=== PATIENT | female | born 1965 | race Two or more races ===

== ENCOUNTER 2025-09-07 09:41 | Emergency (ER) | payer OTHER ==
[~2025-09-07] VITALS: Ht 154.9 cm; Wt 69.0 kg
--- NOTE | 2025-09-07 10:41 | ED.PDOC ---
GI ASSESSMENT HPI Comments This is a 59 year old female presenting to the ED with chief complaint of diarrhea. Patient reports that she has been experiencing diarrhea with associated upper abdominal pain/cramping for the past 2 weeks. Patient relays that her diarrhea has worsened over time and any amount of food makes her go to the bathroom. Reports initially having dark stool, however, now having loose, watery stool. No blood noted within the stool. Patient states she was prescribed Augmentin around the time of her diarrhea onset, was being treated for a ride at this time. Just finished the antibiotics about 3 days ago. Patient notes urgent care prescribed Lomotil and advised her to come to the ED if no relief was noted. Patient denies any N/V, dizziness, fever, chills, or chest pain. Chief Complaint: Diarrhea Time Seen by MD: 10:39 Reviewed Notes: Nurses Notes, Medications, Allergies Allergies: Coded Allergies: NO KNOWN ALLERGIES (Unverified , 09/07/25) Home Meds Active Scripts Potassium Bicarbonate (Effer-K) 25 Meq Tab, 50 MEQ PO DAILY for 5 Days, #10 TAB Prov:MAGED CAMPBELL MD 09/07/25 Information Source: Patient Mode of Arrival: Ambulatory Timing: Days Duration: Since onset Prehospital treatment: None Quality: Aching Vomitus: None Stool: Watery Severity: Moderate Recent: None Recent Hx of: None Pain Location: Epigastric Modifying Factors: Nothing Associated sign and symptoms: Diarrhea, Abdominal Pain Past Medical History PAST MEDICAL HISTORY: Denies Surgical History: Denies all surgeries DIE CLEANER History: No Pertinent DIE CLEANER History Family History Family History: Reviewed,noncontributory to illness Social History Smoker: Non-Smoker Alcohol: Denies ETOH Use Drugs: Denies Drug Use Lives In: Home Constitutional: denies: chills, diaphoresis, fatigue, fever, malaise, sweats, weakness, others EENTM: denies: blurred vision, double vision, ear bleeding, ear discharge, ear drainage, ear pain, ear ringing, eye pain, eye redness, hearing loss, mouth pain, mouth swelling, nasal discharge, nose bleeding, nose congestion, nose pain, photophobia, tearing, throat pain, throat swelling, voice changes, others Respiratory: denies: cough, hemoptysis, orthopnea, SOB at rest, shortness of breath, SOB with excertion, stridor, wheezing, others Cardiovascular: denies: chest pain, dizzy spells, diaphoresis, Dyspnea on exertion, edema, irregular heart beat, left arm pain, lightheadedness, palpitations, PND, syncope, others Gastrointestinal: reports: abdominal pain, diarrhea; denies: abdomen distended, blood streaked bowels, constipated, dysphagia, difficulty swallowing, hematemesis, melena, nausea, poor appetite, poor fluid intake, rectal bleeding, rectal pain, vomiting, others Genitourinary: denies: abnormal vagina bleeding, burning, dyspareunia, dysuria, flank pain, frequency, hematuria, incontinence, pain, , vagina discharge, urgency, others Neurological: denies: dizziness, fainting, headache, left sided numbness, left sided weakness, numbness, paresthesia, pre-existing deficit, right sided numbness, right sided weakness, seizure, speech problems, tingling, tremors, weakness, others Musculoskeletal: denies: back pain, gout, joint pain, joint swelling, muscle pain, muscle stiffness, neck pain, others Integumetry: denies: bruises, change in color, change in hair/nails, dryness, laceration, lesions, lumps, rash, wounds, others Allergic/Immunocompromised: denies: Difficulty Healing, Frequent Infections, Hives, Itching, others Hematologic/Lymphatic: denies: anemia, blood clots, easy bleeding, easy bruising, swollen glands, others Endocrine: denies: excessive hunger, excessive sweating, excessive thirst, excessive urination, flushing, intolerance to cold, intolerance to heat, unexplained weight gain, unexplained weight loss, others Psychiatric: denies: anxiety, bipolar disorder, depression, hopeless, panic disorder, schizophrenia, sleepless, suicidal, others All Other Systems: Reviewed and Negative Physical Exam General Appearance: No Apparent Distress, Normal HEENT: Normal ENT Inspection, Pharynx Normal, TMs Normal Neck: Full Range of Motion, Non-Tender, Normal, Normal Inspection Respiratory: Chest Non-Tender, Lungs Clear, No Accessory Muscle Use, No Respiratory Distress, Normal Breath Sounds Cardiovascular: No Edema, No JVD, No Murmur, No Gallop, Normal Peripheral Pulses, Regular Rate/Rhythm Breast Exam: Deferred Gastrointestinal: No Organomegaly, Non Tender, No Pulsatile Mass, Normal Bowel Sounds, Soft Genitalia: Deferred Pelvic: Deferred Rectal: Deferred Extremities: No calf tenderness, Normal capillary refill, Normal inspection, Normal range of motion, Non-tender, No pedal edema Musculoskeletal : Apperance: Normal Neurologic: Alert, fpga design engineer II-XII nml as Tested, No Motor Deficits, Normal Affect, Normal Mood, No Sensory Deficits Cerebellar Function: Normal Reflexes: Normal Skin: Dry, Normal Color, Warm Lymphatic: No Adenopathy Was a procedure done? Was a procedure done?: No GI differential Dx Differential Diagnosis: Gastritis/PUD, Gastroenteritis, Electrolyte Imbalance, Food Poisoning, Other (Antibiotic) X-Ray, Labs, Meds, VS Vital Signs Date Time Temp Pulse Resp B/P (MAP) Pulse Ox O2 Delivery O2 Flow Rate FiO2 09/07/25 15:04 97.1 72 16 110/60 (77) 96 97.1 09/07/25 12:22 97.8 09/07/25 11:56 97.8 89 16 113/73 (86) 94 97.8 09/07/25 11:56 Room Air* 0 21 09/07/25 09:43 98.1 95 20 131/71 98 98.1 Lab Test 09/07/25 10:32 Range/Units White Blood Count 14.0 H 4.4-10.8 10^3/uL Red Blood Count 4.57 4.0-5.20 10^6/uL Hemoglobin 13.7 12.2-16.2 g/dL Hematocrit 39.8 36.0-46.0 % Mean Corpuscular Volume 87.0 80.0-100.0 fL Mean Corpuscular Hemoglobin 30.0 28.0-32.0 pg Mean Corpuscular Hemoglobin Concent 34.4 32.0-36.0 g/dL Red Cell Distribution Width 13.7 11.8-14.3 % Platelet Count 370 140-450 10^3/uL Mean Platelet Volume 7.8 6.9-10.8 fL Neutrophils (%) (Auto) 37.0-80.0 % Lymphocytes (%) (Auto) 10.0-50.0 % Monocytes (%) (Auto) 0.0-12.0 % Basophils (%) (Auto) 0.0-2.0 % Neutrophils # (Auto) 1.6-8.6 10 ^3/uL Lymphocytes # (Auto) 0.4-5.4 10 ^3/uL Monocytes # (Auto) 0-1.3 10 ^3/uL Differential Total Cells Counted 100.0 100 Neutrophils % (Manual) 44 37.0-80.0 Band Neutrophils % (Manual) 6 Lymphocytes % (Manual) 28 10.0-50.0 Monocytes % (Manual) 20 H 0-12 Eosinophils % (Manual) 2 0-7 Basophils % (Manual) 0 0.0-2.0 Metamyelocytes % (manual) 0 Myelocytes % (Manual) 0 Promyelocytes % (Manual) 0 Blast Cells % (Manual) 0 Reactive Lymphocytes 0 Platelet Estimate Adequate Red Blood Cell Morphology Normal Sodium Level 136 136-145 mmol/L Potassium Level 3.0 L 3.5-5.1 mmol/L Chloride Level 100 98-107 mmol/L Carbon Dioxide Level 28 20-31 mmol/L Anion Gap 8 5-15 Blood Urea Nitrogen 9 9-23 mg/dL Creatinine 0.87 0.550-1.02 mg/dL Glomerular Filtration Rate Calc 77 >90 mL/min BUN/Creatinine Ratio 10.3 10.0-20.0 Serum Glucose 102 74-106 mg/dL Calcium Level 9.6 8.7-10.4 mg/dL Magnesium Level 2.0 1.6-2.6 mg/dL Total Bilirubin 0.7 0.2-1.0 mg/dL Aspartate Amino Transferase (AST) 16 13-40 U/L Alanine Aminotransferase (ALT) 18 7-40 U/L Alkaline Phosphatase 81 46-116 U/L Total Protein 7.3 5.7-8.2 g/dL Albumin 4.4 3.2-4.8 g/dL Lipase 109 H 12-53 U/L HIV (1&2) Antibody Negative Negative Current Medications Medications (Trade) Dose Ordered Sig/Zach Route Start Time Stop Time Status Last Admin Sodium Chloride 1,000 ml @ 1,000 mls/hr Q1H ONCE IV 09/07/25 10:00 09/07/25 10:59 DC 09/07/25 12:23 Famotidine (Pepcid Injection) 20 mg ONCE ONCE IV 09/07/25 10:00 09/07/25 10:01 DC 09/07/25 12:22 Ondansetron HCl (Zofran) 4 mg ONCE ONCE IV 09/07/25 10:00 09/07/25 10:01 DC 09/07/25 12:23 Acetaminophen (Tylenol Tablet Or Capsule) 1,000 mg ONCE ONCE PO 09/07/25 10:00 09/07/25 10:01 DC 09/07/25 12:22 Al Hydrox/Mg Hydrox/Simethicone (Maalox Plus) 30 ml ONCE ONCE PO 09/07/25 10:45 09/07/25 10:46 DC 09/07/25 12:22 Potassium Bicarbonate (Klor-Con/Ef) 50 meq ONCE ONCE PO 09/07/25 13:00 09/07/25 13:01 DC 09/07/25 15:06 Time of 1ST Reevaluation: 11:39 Reevaluation 1ST: Unchanged Time of 2ND Reevaluation: 15:36 Reevaluation 2ND: Improved Patient Education/Counseling: Diagnosis, Treatment Family Education/Counseling: No Family Present SEPSIS Sepsis Screen Date sepsis recognized/suspect: Sep 07, 2025 Time Sepsis recognized/suspect: 943 Recent Procedure: No On Antibiotic Therapy: No Respiratory Rate >20: No Heart Rate >90: Yes Temp<36 C (96.8 F) or >38.3 C: No SBP <90 or MAP <65 mmHG: No New Acute Mental Status Change: No Is the patient on CPAP, BIPAP,: No Physician Orders Acetaminophen Tab Or Cap (Tylenol Tablet (09/07/25 10:00) Vital Signs Date Time Temp Pulse Resp B/P (MAP) Pulse Ox O2 Delivery O2 Flow Rate FiO2 09/07/25 15:04 97.1 72 16 110/60 (77) 96 97.1 09/07/25 12:22 97.8 09/07/25 11:56 97.8 89 16 113/73 (86) 94 97.8 09/07/25 11:56 Room Air* 0 21 09/07/25 09:43 98.1 95 20 131/71 98 98.1 Laboratory Tests Test 09/07/25 10:32 White Blood Count 14.0 10^3/uL (4.4-10.8) H Medications Medications Dose Ordered Sig/Zach Route Start Time Stop Time Status Last Admin Dose Admin Acetaminophen 1,000 mg ONCE ONCE PO 09/07/25 10:00 09/07/25 10:01 DC 09/07/25 12:22 Al Hydrox/Mg Hydrox/Simethicone 30 ml ONCE ONCE PO 09/07/25 10:45 09/07/25 10:46 DC 09/07/25 12:22 Famotidine 20 mg ONCE ONCE IV 09/07/25 10:00 09/07/25 10:01 DC 09/07/25 12:22 Ondansetron HCl 4 mg ONCE ONCE IV 09/07/25 10:00 09/07/25 10:01 DC 09/07/25 12:23 Potassium Bicarbonate 50 meq ONCE ONCE PO 09/07/25 13:00 09/07/25 13:01 DC 09/07/25 15:06 Sodium Chloride 1,000 ml @ 1,000 mls/hr Q1H ONCE IV 09/07/25 10:00 09/07/25 10:59 DC 09/07/25 12:23 Departure 1 Departure Time of Disposition: 15:10 (This is a 59 year old female presenting to the ED with chief complaint of diarrhea. Patient reports that she has been experiencing diarrhea with associated upper abdominal pain/cramping for the past 2 weeks. Patient's symptoms started around the time that she was prescribed antibiotics and it has been taking antibiotics for most of the duration of her symptoms. Suspect likely diarrhea associated symptoms. Although she has had likely antibiotic associated diarrhea she is afebrile here, has no critical leukocytosis, does not seem concerning for C diff colitis. Patient having abdominal cramping, however, has no focal abdominal tenderness, not concerning for acute diverticulitis or other acute intra-abdominal process that would warrant CT imaging at this time. Given continued diarrhea consider likely electrolyte abnormalities. CBC shows no evidence of critical leukocytosis or significant anemia. Metabolic panel shows that the patient has hypokalemia likely related to GI losses. However, has no evidence of acute kidney insuf ficiency. Patient is given 1 L normal saline IV fluid bolus, IV Pepcid, IV Zofran, oral Tylenol, Maalox for symptoms. Was given oral potassium repletion. Feeling improved after interventions. Patient is stable for discharge for further outpatient symptomatic management your x-ray days of potassium repletion. Advised to purchase [id number] probiotics and to continue to take [id number] GI medications as needed continued oral repletion with things such as Pedialyte.) Impression: Primary Impression: Diarrhea Additional Impressions: Hypokalemia Abdominal cramping Disposition: HOME / SELF CARE / HOMELESS Condition: Stable Additional Instructions: You were evaluated today for continued diarrhea over the past couple of weeks. Your potassium level was low due to your diarrhea. You were given a prescription for oral potassium which you will take each day for the next 5 days. Please start taking probiotics which may help with your continued symptoms for your diarrhea. Drink plenty of fluids to stay hydrated including electrolytes such as Pedialyte. e-Prescriptions Potassium Bicarbonate (Effer-K) 25 Meq Tab 50 MEQ PO DAILY for 5 Days, #10 TAB Prov: MAGED CAMPBELL MD 09/07/25 Discharged With: Self Critical Care Note Critical Care Time?: No Stability Stability form required: No Heart Score Heart Score: Heart Score Response (Comments) Value History N/A 0 EKG N/A 0 Age N/A 0 Risk Factors N/A 0 Troponin N/A 0 Total 0 I personally scribed for MAGED CAMPBELL MD ([email or web address]) on 09/07/25 at 10:41. Electronically submitted by Myles Neff ([email or web address]). MAGED CAMPBELL MD Sep 07, 2025 10:41
[2025-09-07 10:53] LABS: Hematocrit 39.8 % (36.0-46.0); Hemoglobin 13.7 g/dL (12.2-16.2); Mean Corpuscular Hemoglobin 30.0 pg (28.0-32.0); Mean Corpuscular Volume 87.0 fL (80.0-100.0)
[2025-09-07 11:12] LABS: Total Cells Counted 100.0 (100)
[2025-09-07 11:13] LABS: RBC Morphology Normal
[2025-09-07] MEDS: MAALOX PLUS or MAALOX 30 ML PO ONE (12:22)
[2025-09-07] MEDS: ACETAMINOPHEN 500 MG TAB or CAP PO ONE (12:22)
[2025-09-07] MEDS: FAMOTIDINE (10MG/ML) 2ML VL IV ONE (12:22)
[2025-09-07] MEDS: ONDANSETRON HCL 4 MG/2 ML VIAL IV ONE (12:23)
[2025-09-07] MEDS: SODIUM CHLORIDE 0.9% 1,000 ML IV ONE (12:23)
[2025-09-07 12:47] LABS: Alanine Aminotransferase 18 U/L (7-40); Albumin 4.4 g/dL (3.2-4.8); Alkaline Phosphatase 81 U/L (46-116); Anion Gap 8 (5-15); BUN/Creatinine Ratio 10.3 (10.0-20.0); Bilirubin, Total 0.7 mg/dL (0.2-1.0); Blood Urea Nitrogen 9 mg/dL (9-23); Calcium 9.6 mg/dL (8.7-10.4); Carbon Dioxide 28 mmol/L (20-31); Chloride 100 mmol/L (98-107); Glucose 102 mg/dL (74-106); Lipase 109 U/L (12-53); Magnesium 2.0 mg/dL (1.6-2.6); Potassium 3.0 mmol/L (3.5-5.1); Sodium 136 mmol/L (136-145); Total Protein 7.3 g/dL (5.7-8.2)
[2025-09-07 15:04] VITALS: TEMP 97.1
[2025-09-07] MEDS: POTASSIUM EFFERVESENT TAB 25 MEQ PO ONE (15:06)
[2025-09-07] MEDS ORDERED: POTA25TA23 PO (15:38)
[2025-09-07 16:02] VITALS: BP 122/59; PULSE 79; RESP 18; O2SAT 95
== END 2025-09-07 16:05 | disposition home or self-care (01) ==
LOC: ER 09:41
DX: R19.7 Diarrhea, unspecified (principal); R10.9 Unspecified abdominal pain; E87.6 Hypokalemia
CPT/HCPCS: 36415; 80053; 83690; 83735; 85007; 85027; 86703; 96361; 96374; 96375; 99284; J2405; J3490; J7030